=== PATIENT | female | born 1960 | race Caucasian/White ===

== ENCOUNTER → 2019-03-19 | Outpatient (CLI) | payer SELFPAY | LOC: PT 09:55 | DX: Z47.1 Aftercare following joint replacement surgery (principal); Z96.611 Presence of right artificial shoulder joint ==

== ENCOUNTER 2019-06-16 09:30 | Outpatient (RCR) | payer BC | END 2019-06-26 | disposition still patient (30) | LOC: PT | DX: Z98.890 Other specified postprocedural states (principal) ==